=== PATIENT | female | born 1995 | race Caucasian/White ===

== ENCOUNTER 2017-02-28 23:11 | Emergency (ER) | payer SELFPAY ==
[2017-03-01] MEDS ORDERED: Ketorolac INJ* 60 MG/2 ML VIAL IM ONE (00:53)
[2017-03-01] MEDS ORDERED: HYDROcodone/ACETAMIN 5-325 MG* 1 TAB PO ONE (00:53)
--- NOTE | 2017-03-01 01:31 | ED ---
Lower Extremity - HPI Summary HPI Summary: Patient presents to ED s/p fall and twisted ankle. Now complains of right ankle pain and swelling with no ecchymosis. She denies pain up the leg or behind the knee. Denies blood thinners. Denies hitting head or LOC. - History of Current Complaint Chief Complaint: EDExtremityLower Stated Complaint: FALL/RT ANKLE INJURY Time Seen by Provider: 02/28/17 23:21 Hx Obtained From: Patient Hx Last Menstrual Period: Apr 2016 Mechanism Of Injury: Twisted Onset of Pain: Immediate Onset/Duration: Hours Severity Initially: Moderate Severity Currently: Moderate Pain Intensity: 8 Pain Scale Used: 0-10 Numeric Timing: Constant Location: Is Discrete @ - right lateral ankle Associated Signs And Symptoms: Positive: Swelling Aggravating Factor(s): Standing, Ambulation, Weight Bearing Alleviating Factor(s): Rest, Elevation Able to Bear Weight: No - Risk Factors Gout Risk Factors: Negative DVT Risk Factors: Negative Septic Arthritis Risk Factor: Negative - Allergies/Home Medications Allergies/Adverse Reactions: Allergies Allergy/AdvReac Type Severity Reaction Status Date / Time No Known Allergies Allergy Verified 06/14/16 20:07 PMH/Surg Hx/FS Hx/Imm Hx Previously Healthy: Yes Endocrine/Hematology History: Denies: Hx Diabetes, Hx Thyroid Disease Cardiovascular History: Denies: Hx Congestive Heart Failure, Hx Hypertension Respiratory History: Denies: Hx Asthma, Hx Chronic Obstructive Pulmonary Disease (COPD) GI History: Denies: Hx Ulcer History: Denies: Hx Renal Disease - Surgical History Surgery Procedure, Year, and Place: T & A, 2007 - Immunization History Hx Pertussis Vaccination: No Immunizations Up to Date: Unable to Obtain/Confirm Infectious Disease History: Denies: Hx Hepatitis, Hx Human Immunodeficiency Virus (HIV), Traveled Outside the [place] in Last 30 Days - Family History Known Family History: Positive: Hypertension - Social History Occupation: Employed Full-time Lives: With Family Alcohol Use: None Hx Substance Use: No Substance Use Type: Reports: None Hx Tobacco Use: No Smoking Status (MU): Never Smoked Tobacco Have You Smoked in the Last Year: No Review of Systems Constitutional: Negative Positive: Photophobia Cardiovascular: Negative Respiratory: Negative Positive: no symptoms reported, see HPI Positive: Arthralgia, Myalgia Skin: Negative Psychological: Normal All Other Systems Reviewed And Are Negative: Yes Physical Exam - Summary Physical Exam Summary: Thorough physical exam was performed, focusing on ankle special tests. Pain on palpation over lateral aspect and superior aspect of ankle over ATFL and deltoid ligaments. No pain on palpation over medial side. Due to patient pain around injury, physical exam was limited. Unable to perform anterior drawer test or talar tilt test d/t pain. Resendez test negative. Limited ROM. Dorsiflexion, great toe extension and plantar flexion intact however limited. No pain on palpation over medial or lateral lower extremity. No pain with knee flexion. Pulses intact bilaterally. No temperature change or pallor noted bilaterally. Ecchymosis and swelling noted on lateral aspect. No lesion or disruption of skin is seen. Unable to bear weight. Triage Information Reviewed: Yes Vital Signs Reviewed: Yes Appearance: Positive: Well-Appearing, Well-Nourished Skin: Positive: Warm, Skin Color Reflects Adequate Perfusion Eyes: Positive: EOMI, EMILIANO, Conjunctiva Clear Neck: Positive: Supple, No Lymphadenopathy Respiratory/Lung Sounds: Positive: Clear to Auscultation, Breath Sounds Present Cardiovascular: Positive: Normal, RRR, Pulses are Symmetrical in both Upper and Lower Extremities Neurological: Positive: Sensory/Motor Intact, Alert, Oriented to Person Place, Time, Speech Normal Psychiatric: Positive: Normal Lower Extremity Course/Dx - Course Course Of Treatment: Based on [facility] Rules, patient sent to imaging. Xray negative for fracture or other acute findings. Soft tissue swelling noted over the lateral aspect of the ankle. Medial and lateral distal lower extremity without pain and x-rays show no widening of the ankle joint regarding low suspicion for Maisonneuve fx. Ankle was natividad wrapped to patient comfort to allow for immobilization for this period of time. Crutches given. Patient given orthopedic follow up in 5-7 days. Encouraged Ibuprofen 600mg three times daily with meals for pain. Return precautions given. Educated patient regarding ankle injuries and healing time and the possibility of further evaluation and imaging as orthopedist sees fit. - Diagnoses Differential Diagnosis/HQI/PQRI: Positive: Contusion, Fracture (Closed), Sprain , Strain Provider Diagnoses: Grade 2 ankle sprain Discharge - Discharge Plan Condition: Stable Disposition: HOME Patient Education Materials: Ankle Sprain (ED) Forms: *Work Release Referrals: Connie Beaver DO [Primary Care Provider] - Additional Instructions: Crutches for ambulation given. Ibuprofen 600mg three times daily with meals for pain. Follow up with orthopedic physician in 5-7 days. If numbness, tingling, decreased sensation, increased pain, temperature changes or pallor noted in toes, come back to ER immediately. Protect the area. For your comfort level, do not bear weight, pull or push until you can injury is somewhat healed. This may involve the need for immobilization or crutches for a period of time. Rest the involved area, but not too long. You may need to be off your injury for some time to allow for healing, however excessive immobilization of joints can lead to stiffness and delay healing time. Early mobilization is encouraged if it is pain-free. Ice. Not directly on the skin. Cover with a towel. Apply ice no more than 30 minutes at a time Compression: You may use and keep an natividad wrap bandage over the injury to decrease swelling. Again, this should be limited and be taken off periodically to encourage early range of motion and mobilization. Elevate: Try to elevate the injured area above the heart whenever possible.
[2017-03-01 05:45] VITALS: BP 141/86
--- NOTE | 2017-03-01 07:23 | RAD ---
INDICATION: Right ankle injury COMPARISON: None TECHNIQUE: AP, lateral, and oblique views were obtained. FINDINGS: There is no acute fracture or dislocation. There is minor lateral soft tissue swelling. IMPRESSION: NO ACUTE FRACTURE.
== END 2017-03-01 01:25 | disposition home or self-care (01) ==
LOC: ED 23:11
DX: S93.401A Sprain of unspecified ligament of right ankle, initial encounter (principal); W19.XXXA Unspecified fall, initial encounter; Y93.9 Activity, unspecified; Y92.9 Unspecified place or not applicable
CPT/HCPCS: 99281

== ENCOUNTER 2017-07-15 09:35 | Emergency (ER) | payer OTHER ==
[2017-07-15 10:08] VITALS: BP 136/66
--- NOTE | 2017-07-15 10:53 | RAD ---
HISTORY: Headache, dizziness COMPARISONS: None TECHNIQUE: Multiple contiguous axial CT scans were obtained of the head without intravenous contrast. FINDINGS: HEMORRHAGE/INFARCT: There is no hemorrhage or acute infarct. MASSES/SHIFT: There is no mass or shift. EXTRA-AXIAL SPACES: There are no extra-axial fluid collections. SULCI AND VENTRICLES: The sulci and ventricles are normal in size and position for the patient's stated age. CEREBRUM: There are no focal parenchymal abnormalities. BRAINSTEM: There are no focal parenchymal abnormalities. CEREBELLUM: There are no focal parenchymal abnormalities. VESSELS: The vessels are grossly normal. PARANASAL SINUSES: The paranasal sinuses are clear. ORBITS: The orbits are unremarkable. BONES AND SOFT TISSUE: No bone or soft tissue abnormalities are noted. OTHER: None IMPRESSION: NO ACUTE INTRACRANIAL PATHOLOGY.
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
== END 2017-07-15 11:16 | disposition short-term general hospital (02) ==
LOC: UCEAST 09:35
DX: R50.9 Fever, unspecified (principal); R51 Headache; R00.0 Tachycardia, unspecified; R11.2 Nausea with vomiting, unspecified; M54.2 Cervicalgia
CPT/HCPCS: 70450; 81003; 87086; 99212; G0463

== ENCOUNTER 2017-07-15 11:35 | Observation (INO) | payer OTHER ==
[2017-07-15] MEDS ORDERED: NS 0.9% 1000 ML* 1,000 ML IV ONE (11:59)
[2017-07-15 13:07] LABS: Hematocrit 41 % (35-47); Hemoglobin 13.8 g/dl (12.0-16.0); Mean Corpuscular HGB Conc 34 g/dl (31-36); Mean Corpuscular Hemoglobin 30 pg (27-31); Mean Corpuscular Volume 88 fL (80-97); Mean Platelet Volume 8 um3 (7.4-10.4); Red Blood Count 4.63 10^6/ul (4.0-5.4); Red Cell Distribution Width 12 % (10.5-15)
[2017-07-15] MEDS ORDERED: fentaNYL* 50 MCG/ML 2 ML VIAL (100 MCG VIAL) ONE (13:08)
[2017-07-15] MEDS: fentaNYL* 50 MCG/ML 2 ML VIAL (100 MCG VIAL) IV PRN ×2 (13:17→14:30)
[2017-07-15] MEDS ORDERED: Lidocaine 2% PF * 5 ML VIAL ONE (13:18)
[2017-07-15 13:22] LABS: ALT 33 U/L (7-52); AST 21 U/L (13-39); Albumin 4.1 g/dL (3.2-5.2); Alkaline Phosphatase 129 U/L (34-104); Anion Gap 7 mmol/L (2-11); BUN/Creatinine Ratio 8.6 (8-20); Blood Urea Nitrogen 8 mg/dL (6-24); C Reactive Protein 27.75 mg/L (< 5.00); CO2 Carbon Dioxide 24 mmol/L (22-32); Calcium 9.6 mg/dL (8.6-10.3); Chloride 103 mmol/L (101-111); EGFR African American 98.8 (>60); EGFR Non-African American 76.9 (>60); Globulin 3.1 g/dL (2-4); Glucose 83 mg/dL (70-100); Potassium 3.9 mmol/L (3.5-5.0); Sodium 134 mmol/L (133-145); Total Protein 7.2 g/dL (6.4-8.9)
[2017-07-15 13:47] LABS: Erythrocyte Sed Rate 17 mm/Hr (0-14)
[2017-07-15] MEDS ORDERED: Lidocaine 2% PF * 5 ML VIAL INJ ONE (14:07)
[2017-07-15 14:09] LABS: Body Fluid Appearance Clear
[2017-07-15 14:18] LABS: CSF Glucose 56 mg/dL (40-70)
[2017-07-15 14:21] LABS: BF WBC Count #1 2; BF WBC Count #2 3; Body Fluid WBC 3 /mcL; WBC counts within 15%? Yes
[2017-07-15 14:23] LABS: BF RBC Count #1 5; BF RBC Count #2 7; RBC counts within 6%? Yes
[2017-07-15 15:00] LABS: Body Fluid Total Cells Counted 24
--- NOTE | 2017-07-15 15:18 | RAD ---
Indication: Headache and fever. 2 views of the chest including dual energy PA views and a straight no mediastinal shift. Heart is of normal size and configuration. Lung smith demonstrate no pleural fluid, pneumonia. IMPRESSION: No active cardiopulmonary disease is noted.
[2017-07-15] MEDS ORDERED: Ketorolac INJ* 30 MG/ML 1 ML VIAL IV PUSH ONE (15:32)
[2017-07-15 16:56] LABS: Urine Bacteria 2+ (Absent); Urine Bilirubin Negative (Negative); Urine Glucose Negative (Negative); Urine Nitrite Negative (Negative)
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
[2017-07-15] MEDS ORDERED: Acetaminophen TAB* 325 MG PO ONE (21:25)
[2017-07-15] MEDS ORDERED: Morphine INJ* 4 MG/ML 1 ML CARPUJECT IV ONE (21:25)
[2017-07-15] MEDS: NS 0.9% 1000 ML*IV.FLUID IV ONE ×2 (21:41→22:58)
[2017-07-15 22:13] LABS: Hematocrit 39 % (35-47); Hemoglobin 13.1 g/dl (12.0-16.0); Mean Corpuscular HGB Conc 33 g/dl (31-36); Mean Corpuscular Hemoglobin 30 pg (27-31); Mean Corpuscular Volume 89 fL (80-97); Mean Platelet Volume 9 um3 (7.4-10.4); Red Blood Count 4.43 10^6/ul (4.0-5.4); Red Cell Distribution Width 12 % (10.5-15); White Blood Count 9.7 10^3/ul (3.5-10.8)
[2017-07-15] MEDS ORDERED: Melatonin (NF) 3 MG TAB PO PRN (22:22)
[2017-07-15] MEDS ORDERED: fentaNYL* 50 MCG/ML 2 ML VIAL (100 MCG VIAL) IV SLOW PU PRN (22:22)
[2017-07-15] MEDS ORDERED: Ondansetron INJ* 2 MG/ML VIAL IV PRN (22:22)
[2017-07-15] MEDS ORDERED: NS 0.9% 1000 ML* 1,000 ML IV SCH (22:30)
[2017-07-15 22:32] LABS: Albumin 3.8 g/dL (3.2-5.2); BUN/Creatinine Ratio 10.7 (8-20); C Reactive Protein 41.69 mg/L (< 5.00); Calcium 9.2 mg/dL (8.6-10.3); EGFR African American 87.9 (>60); EGFR Non-African American 68.3 (>60); Globulin 2.9 g/dL (2-4); Potassium 3.5 mmol/L (3.5-5.0); Total Bilirubin 0.8 mg/dL (0.2-1.0); Total Protein 6.7 g/dL (6.4-8.9)
[2017-07-15] MEDS: Acetaminophen TAB* 325 MG PO PRN (23:51)
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
[2017-07-16] MEDS: traMADol TAB* 50 MG PO PRN ×3 (02:57→17:28)
[2017-07-16] MEDS: Omeprazole CAP* 20 MG PO SCH (05:44)
[2017-07-16 06:50] LABS: Hematocrit 37 % (35-47); Hemoglobin 12.3 g/dl (12.0-16.0); Mean Corpuscular HGB Conc 34 g/dl (31-36); Mean Corpuscular Hemoglobin 30 pg (27-31); Mean Corpuscular Volume 90 fL (80-97); Mean Platelet Volume 8 um3 (7.4-10.4); Red Blood Count 4.09 10^6/ul (4.0-5.4); Red Cell Distribution Width 13 % (10.5-15); White Blood Count 8.2 10^3/ul (3.5-10.8)
[2017-07-16 07:12] LABS: BUN/Creatinine Ratio 8.3 (8-20); Calcium 8.3 mg/dL (8.6-10.3); EGFR African American 111.2 (>60); EGFR Non-African American 86.4 (>60)
[2017-07-16] MEDS: Docusate CAP* 100 MG PO SCH ×2 (08:53→19:29)
[2017-07-16] MEDS ORDERED: Ketorolac INJ* 30 MG/ML 1 ML VIAL IV PUSH ONE (09:00)
[2017-07-16] MEDS: DOXYcycline CAP(*) 100 MG PO SCH ×2 (10:40→19:28)
--- NOTE | 2017-07-16 15:17 | PN ---
Subjective Date of Service: 07/16/17 Interval History: This is a 22 yo female who has a h/o chronic HAs and prior TBI who was admitted overnight for symptom management due to c/o severe VELASQUEZ and fever. There was initial concern for meningitis, but CSF analysis was WNL. Today, patient continues to have a VELASQUEZ with c/o nausea and has had an intermittent fever. Appetite is poor. No other arthralgias, cough, abd pain. Objective Active Medications: Acetaminophen (Tylenol Tab*) 650 mg PO Q6H PRN PRN Reason: FEVER/PAIN Last Admin: 07/15/17 23:51 Dose: 650 mg Docusate Sodium (Colace Cap*) 200 mg PO BID [facility] Last Admin: 07/16/17 08:53 Dose: Not Given Doxycycline Hyclate (Vibramycin Cap(*)) 100 mg PO BID [facility] Last Admin: 07/16/17 10:40 Dose: 100 mg Fentanyl Citrate (Fentanyl*) 25 mcg IV SLOW PU Q4H PRN PRN Reason: PAIN Melatonin (Melatonin (Nf)) 3 mg PO BEDTIME PRN; Protocol PRN Reason: Sleep Omeprazole (Prilosec Cap*) 20 mg PO DAILY@0600 [facility] Last Admin: 07/16/17 05:44 Dose: 20 mg Ondansetron HCl (Zofran Inj*) 4 mg IV Q6H PRN PRN Reason: NAUSEA Last Admin: 07/16/17 11:55 Dose: 4 mg Tramadol HCl (Ultram*) 50 mg PO Q6H PRN PRN Reason: PAIN Last Admin: 07/16/17 08:59 Dose: 50 mg Vital Signs: Temp Pulse Resp BP Pulse Ox 100.1 F 106 18 135/67 97 07/16/17 11:21 07/16/17 11:21 07/16/17 11:21 07/16/17 11:21 07/16/17 11:21 Oxygen Devices in Use Now: None Appearance: Mildly ill appearing young female in NAD Respiratory: Symmetrical Chest Expansion and Respiratory Effort, Clear to Auscultation Cardiovascular: NL Sounds; No Murmurs; No JVD, RRR Abdominal: NL Sounds; No Tenderness; No Distention Extremities: No Edema Skin: No Rash or Ulcers Neurological: Alert and Oriented x 3, - - 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 Assess/Plan/Problems-Billing Assessment: This is a 22 yo female with remote h/o TBI and chronic HAs who presented to the ER with fever and severe VELASQUEZ. Initial concern for meningitis, but CSF WNL. Admitted for symptom management. - Patient Problems (1) Febrile illness Comment: Viral syndrome v Lyme disease CSF unremarkable Empirically treat for Lyme with doxycycline, serology pending Cont supportive care measures. (2) Full code status (3) DVT prophylaxis Comment: Low risk Status and Disposition: Observation. Cont supportive care measures. Likely dc tomorrow if she is able to tolerate oral foods and additional symptoms are controlled with oral medications
[2017-07-16 15:43] LABS: HSV 1 PCR, CSF Negative (Negative); HSV 2 PCR, CSF Negative (Negative)
[2017-07-16 17:37] LABS: CSF VDRL Negative (Negative)
[2017-07-16] MEDS: Acetaminophen TAB* 325 MG PO PRN (18:08)
[2017-07-17] MEDS: Omeprazole CAP* 20 MG PO SCH (05:17)
[2017-07-17] MEDS: traMADol TAB* 50 MG PO PRN (06:54)
[2017-07-17 09:08] VITALS: BP 122/65
[2017-07-17] MEDS: Acetaminophen TAB* 325 MG PO PRN (09:28)
[2017-07-17] MEDS: DOXYcycline CAP(*) 100 MG PO SCH (09:28)
[2017-07-17] MEDS: Docusate CAP* 100 MG PO SCH (09:28)
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
[2017-07-18 17:08] LABS: CSF West Nile Virus IgG Ab Negative (Negative); CSF West Nile Virus IgM Ab Negative (Negative)
== END 2017-07-17 10:45 | disposition home or self-care (01) ==
LOC: ED 11:35 → MED 22:20
PROVIDERS: ADMIT Hospitalist; ATTEND Hospitalist
DX: R50.9 Fever, unspecified (principal); R51 Headache; Z87.820 Personal history of traumatic brain injury; E28.2 Polycystic ovarian syndrome; Z32.02 Encounter for pregnancy test, result negative
CPT/HCPCS: 36415; 71020; 80048; 80053; 81003; 81015; 82945; 83605; 84157; 84702; 85025; 85652; 86140; 86592; 86618; 86788; 86789; 87040; 87070; 87077; 87086; 87186; 87205; 87502; 87529; 87651; 89051; 96361; 96374; 96375; 96376; 99283; A9270-GY; G0378; J1885; J2270; J2405; J3010

== ENCOUNTER 2018-03-12 18:59 | Emergency (ER) | payer OTHER ==
[2018-03-12 19:15] VITALS: BP 143/69
[2018-03-12] MEDS ORDERED: Tetan/Diph/Pertus SYR(Tdap)* 0.5 ML SYR(BOOSTRIX) use SYR IM ONE (19:20)
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
== END 2018-03-12 20:01 | disposition home or self-care (01) ==
LOC: UCCORT 18:59
DX: S60.811A Abrasion of right wrist, initial encounter (principal); W19.XXXA Unspecified fall, initial encounter; Y93.89 Activity, other specified; Y92.9 Unspecified place or not applicable; Y99.0 Civilian activity done for income or pay
CPT/HCPCS: 90471; 90715; 99211; G0463

== ENCOUNTER 2018-05-16 12:51 | Emergency (ER) | payer OTHER ==
[2018-05-16] MEDS ORDERED: NS 0.9% 1000 ML* 1,000 ML IV ONE (17:02)
[2018-05-16] MEDS ORDERED: Ondansetron INJ* 2 MG/ML VIAL IV ONE (17:08)
[2018-05-16] MEDS ORDERED: Morphine VIAL* 10 MG/ML 1 ML VIAL IV ONE (17:08)
[2018-05-16 17:13] LABS: ABS Basophils 0 10^3/ul (0-0.2); ABS Eosinophils 0 10^3/ul (0-0.6); ABS Lymphocytes 2.2 10^3/ul (1.0-4.8); ABS Monocytes 0.5 10^3/ul (0-0.8); ABS Nucleated RBC 0 10^3/ul; Eosinophil % 0.1 % (0-6); Hematocrit 41 % (35-47); Hemoglobin 13.7 g/dl (12.0-16.0); Lymphocyte % 20.9 % (25-47); Mean Corpuscular HGB Conc 34 g/dl (31-36); Mean Corpuscular Hemoglobin 30 pg (27-31); Mean Corpuscular Volume 88 fL (80-97); Mean Platelet Volume 7.9 um3 (7.4-10.4); Nucleated Red Blood Cells % 0; Platelet Count 258 10^3/ul (150-450); Red Cell Distribution Width 12 % (10.5-15); White Blood Count 10.8 10^3/ul (3.5-10.8)
[2018-05-16 17:35] LABS: EGFR Non-African American 97.5 (>60)
[2018-05-16] MEDS ORDERED: Iohexol 300* (CONTRAST) 10 ML SDV IV ONE (18:04)
[2018-05-16 18:07] LABS: Urine Appearance Clear; Urine Blood NEG (Negative); Urine Color Yellow; Urine Ketones NEG (Negative); Urine Urobilinogen NEG (Negative)
[2018-05-16 18:08] LABS: Urine Protein 1+(30 mg/dL) (Negative)
--- NOTE | 2018-05-16 19:28 | RAD ---
EXAM: CT Abdomen and Pelvis With Intravenous Contrast CLINICAL HISTORY: 23 years old, female; Pain; Abdominal pain; Additional info: Rlq pain, constant, + mcburneys TECHNIQUE: Axial computed tomography images of the abdomen and pelvis with intravenous contrast. All CT scans at this facility use at least one of these dose optimization techniques: automated exposure control; mA and/or kV adjustment per patient size (includes targeted exams where dose is matched to clinical indication); or iterative reconstruction. Coronal and sagittal reformatted images were created and reviewed. CONTRAST: 131 mL of OMNIPAQUE 300 administered intravenously. COMPARISON: A/P W CT ABD/PEL W 05/29/2014 3:59 AM FINDINGS: Lung bases: There is bibasilar atelectatic change or scarring. Mediastinum: Slight increase in size of small hiatal hernia. ABDOMEN: Liver: Stable mild hepatomegaly. Gallbladder and bile ducts: Unremarkable. No calcified stones. No ductal dilation. Pancreas: Unremarkable. No mass. No ductal dilation. Spleen: Unremarkable. No splenomegaly. Adrenals: Unremarkable. No mass. Kidneys and ureters: Unremarkable. No solid mass. No hydronephrosis. Stomach and bowel: Unremarkable. No obstruction. No mucosal thickening. PELVIS: Appendix: The appendix is unremarkable. The appendix is seen best on axial image 53 of series 2. Bladder: Unremarkable. No mass. Reproductive: Unremarkable as visualized. ABDOMEN and PELVIS: Intraperitoneal space: Unremarkable. No free air. No significant fluid collection. Bones/joints: No acute fracture. No dislocation. Soft tissues: Unremarkable. Vasculature: Unremarkable. No abdominal aortic aneurysm. Lymph nodes: Unremarkable. No enlarged lymph nodes. IMPRESSION: 1. Slight increase in size of small hiatal hernia. 2. The appendix is unremarkable. 3. No other acute CT pathology.
--- NOTE | 2018-05-16 19:59 | ED ---
Abdominal Pain/Female - HPI Summary HPI Summary: Patient complains of bilateral lower back pain radiating down left leg 3 weeks , also complains of mild intermittent VELASQUEZ, fever up to 101.3, right lower quadrant pain, burning with urination, chills. Patient was seen for back pain according on 2 weeks ago was given Flexeril and tramadol without relief. Patient is also seeing chiropractor without relief. Abdominal pain described as constant, sharp, history of same one year ago. Has appointment with PCP next week but could not wait due to pain. Denies urinary retention, incontinence, SOB, cough, sore throat, CP, N/V/D, vaginal symptoms. Medical history is anxiety, PCO S. Surgical history is none. LMP 2 days ago. - History of Current Complaint Chief Complaint: EDBackInjuryPain Stated Complaint: BACK PAIN/FEVER/HEADACHE Time Seen by Provider: 05/16/18 16:47 Hx Obtained From: Patient Hx Last Menstrual Period: 06/21/2017 ?: No Onset/Duration: Gradual Onset Timing: Constant Severity Initially: Severe Severity Currently: Severe Pain Intensity: 9 Pain Scale Used: 0-10 Numeric Location: Discrete At: RLQ Radiates: No Character: Sharp Aggravating Factor(s): Nothing Alleviating Factor(s): Nothing Associated Signs and Symptoms: Positive: Back Pain, Urinary Symptoms Allergies/Adverse Reactions: Allergies Allergy/AdvReac Type Severity Reaction Status Date / Time No Known Allergies Allergy Verified 05/16/18 17:07 PMH/Surg Hx/FS Hx/Imm Hx Endocrine/Hematology History: Denies: Hx Diabetes, Hx Thyroid Disease Cardiovascular History: Denies: Hx Congestive Heart Failure, Hx Hypertension Respiratory History: Denies: Hx Asthma, Hx Chronic Obstructive Pulmonary Disease (COPD) GI History: Denies: Hx Ulcer History: Reports: Other Problems/Disorders - PCOS Denies: Hx Renal Disease Sensory History: Reports: Hx Contacts or Glasses Denies: Hx Hearing Aid Opthamlomology History: Reports: Hx Contacts or Glasses - Surgical History Surgery Procedure, Year, and Place: T & A, 2007 - Immunization History Immunizations Up to Date: Yes Infectious Disease History: No Infectious Disease History: Denies: Hx Hepatitis, Hx Human Immunodeficiency Virus (HIV), Hx of Known/ Suspected MRSA, Traveled Outside the [place] in Last 30 Days - Family History Known Family History: Positive: Unknown - STATES SHE IS UNSURE OF ANY OF HER FAMILY'S PMHx, Other - No cancer, father and siblings are alive and well with no illness Negative: Cardiac Disease, Hypertension, Diabetes - Social History Alcohol Use: Occasionally Hx Substance Use: No Substance Use Type: Reports: None Hx Tobacco Use: No Smoking Status (MU): Never Smoked Tobacco Have You Smoked in the Last Year: No Review of Systems Positive: Fever Eyes: Negative ENT: Negative Cardiovascular: Negative Respiratory: Negative Positive: Abdominal Pain Positive: burning Musculoskeletal: Negative Skin: Negative Positive: Headache Psychological: Normal All Other Systems Reviewed And Are Negative: Yes Physical Exam Triage Information Reviewed: Yes Vital Signs On Initial Exam: Initial Vitals Temp Pulse Resp BP Pulse Ox 98.8 F 102 18 122/66 100 05/16/18 12:55 05/16/18 12:55 05/16/18 12:55 05/16/18 12:55 05/16/18 12:55 Vital Signs Reviewed: Yes Appearance: Positive: Well-Appearing Skin: Positive: Warm Head/Face: Positive: Normal Head/Face Inspection Eyes: Positive: Normal ENT: Positive: Normal ENT inspection Neck: Positive: Supple Respiratory/Lung Sounds: Positive: Clear to Auscultation Cardiovascular: Positive: Normal Abdomen Description: Positive: [place] Tenderness Musculoskeletal: Positive: Normal Neurological: Positive: Normal Psychiatric: Positive: Normal AVPU Assessment: Alert - [place] Coma Scale Best Eye Response: 4 - Spontaneous Best Motor Response: 6 - Obeys Commands Best Verbal Response: 5 - Oriented Coma Scale Total: 15 Diagnostics - Vital Signs Vital Signs Temp Pulse Resp BP Pulse Ox 05/16/18 17:34 16 05/16/18 17:01 97 20 138/72 97 05/16/18 12:55 98.8 F 102 18 122/66 100 - Laboratory Lab Results: Lab Results 05/16/18 05/16/18 05/16/18 Range/Units 16:59 16:59 16:59 WBC 10.8 (3.5-10.8) 10^3/ul RBC 4.60 (4.00-5.40) 10^6/ul Hgb 13.7 (12.0-16.0) g/dl Hct 41 (35-47) % MCV 88 (80-97) fL MCH 30 (27-31) pg MCHC 34 (31-36) g/dl RDW 12 (10.5-15) % Plt Count 258 (150-450) 10^3/ul MPV 7.9 (7.4-10.4) um3 Neut % (Auto) 74.1 (38-83) % Lymph % (Auto) 20.9 L (25-47) % [place] % (Auto) 4.7 (0-7) % Eos % (Auto) 0.1 (0-6) % Baso % (Auto) 0.2 (0-2) % Absolute Neuts (auto) 8.0 H (1.5-7.7) 10^3/ul Absolute Lymphs (auto) 2.2 (1.0-4.8) 10^3/ul Absolute Monos (auto) 0.5 (0-0.8) 10^3/ul Absolute Eos (auto) 0 (0-0.6) 10^3/ul Absolute Basos (auto) 0 (0-0.2) 10^3/ul Absolute Nucleated RBC 0 10^3/ul Nucleated RBC % 0 Sodium 137 (135-145) mmol/L Potassium 4.3 (3.5-5.0) mmol/L Chloride 105 (101-111) mmol/L Carbon Dioxide 23 (22-32) mmol/L Anion Gap 9 (2-11) mmol/L BUN 11 (6-24) mg/dL Creatinine 0.75 (0.51-0.95) mg/dL Est GFR ( Amer) 118.0 (>60) Est GFR (Non-Af Amer) 97.5 (>60) BUN/Creatinine Ratio 14.7 (8-20) Glucose 77 (70-100) mg/dL Lactic Acid 0.8 (0.5-2.0) mmol/L Calcium 9.6 (8.6-10.3) mg/dL Total Bilirubin 1.20 H (0.2-1.0) mg/dL AST 15 (13-39) U/L ALT 21 (7-52) U/L Alkaline Phosphatase 104 (34-104) U/L C-Reactive Protein 67.30 H (<8.01) mg/L Total Protein 7.5 (6.4-8.9) g/dL Albumin 4.3 (3.2-5.2) g/dL Globulin 3.2 (2-4) g/dL Albumin/Globulin Ratio 1.3 (1-3) Lipase 10 L (11.0-82.0) U/L Beta HCG, Quant < 0.60 mIU/mL Urine Color Urine Appearance Urine pH (5-9) Ur Specific [place] (1.010-1.030) Urine Protein (Negative) Urine Ketones (Negative) Urine Blood (Negative) Urine Nitrate (Negative) Urine Bilirubin (Negative) Urine Urobilinogen (Negative) Ur Leukocyte Esterase (Negative) Urine Glucose (Negative) 05/16/18 Range/Units 18:01 WBC (3.5-10.8) 10^3/ul RBC (4.00-5.40) 10^6/ul Hgb (12.0-16.0) g/dl Hct (35-47) % MCV (80-97) fL MCH (27-31) pg MCHC (31-36) g/dl RDW (10.5-15) % Plt Count (150-450) 10^3/ul MPV (7.4-10.4) um3 Neut % (Auto) (38-83) % Lymph % (Auto) (25-47) % [place] % (Auto) (0-7) % Eos % (Auto) (0-6) % Baso % (Auto) (0-2) % Absolute Neuts (auto) (1.5-7.7) 10^3/ul Absolute Lymphs (auto) (1.0-4.8) 10^3/ul Absolute Monos (auto) (0-0.8) 10^3/ul Absolute Eos (auto) (0-0.6) 10^3/ul Absolute Basos (auto) (0-0.2) 10^3/ul Absolute Nucleated RBC 10^3/ul Nucleated RBC % Sodium (135-145) mmol/L Potassium (3.5-5.0) mmol/L Chloride (101-111) mmol/L Carbon Dioxide (22-32) mmol/L Anion Gap (2-11) mmol/L BUN (6-24) mg/dL Creatinine (0.51-0.95) mg/dL Est GFR ( Amer) (>60) Est GFR (Non-Af Amer) (>60) BUN/Creatinine Ratio (8-20) Glucose (70-100) mg/dL Lactic Acid (0.5-2.0) mmol/L Calcium (8.6-10.3) mg/dL Total Bilirubin (0.2-1.0) mg/dL AST (13-39) U/L ALT (7-52) U/L Alkaline Phosphatase (34-104) U/L C-Reactive Protein (<8.01) mg/L Total Protein (6.4-8.9) g/dL Albumin (3.2-5.2) g/dL Globulin (2-4) g/dL Albumin/Globulin Ratio (1-3) Lipase (11.0-82.0) U/L Beta HCG, Quant mIU/mL Urine Color Yellow Urine Appearance Clear Urine pH 7 (5-9) Ur Specific [place] 1.010 (1.010-1.030) Urine Protein 1+(30 mg/dl) A (Negative) Urine Ketones Neg (Negative) Urine Blood Neg (Negative) Urine Nitrate Neg (Negative) Urine Bilirubin Neg (Negative) Urine Urobilinogen Neg (Negative) Ur Leukocyte Esterase 3+ A (Negative) Urine Glucose Neg (Negative) Result Diagrams: 05/16/18 16:59 05/16/18 16:59 Lab Statement: Any lab studies that have been ordered have been reviewed, and results considered in the medical decision making process. - CT ab/pel w CT Interpretation: No Acute Changes CT Interpretation Completed By: Radiologist Abdominal Pain Fem Course/Dx - Course Course Of Treatment: Patient complains of bilateral lower back pain radiating down left leg 3 weeks, also complains of mild intermittent VELASQUEZ, fever up to 101.3, right lower quadrant pain, burning with urination, chills. Patient was seen for back pain according on 2 weeks ago was given Flexeril and tramadol without relief. Patient is also seeing chiropractor without relief. Abdominal pain described as constant, sharp, history of same one year ago. Has appointment with PCP next week but could not wait due to pain. Denies urinary retention, incontinence, SOB, cough, sore throat, CP, N/V/D, vaginal symptoms. Medical history is anxiety, PCO S. Surgical history is none. LMP [address] abdomen and pelvis negative. Transvaginal ultrasound positive for bilateral ovarian cysts. Patient back pain likely sciatica. Rx for Valium and prednisone for sciatica. Ibuprofen for ovarian cysts. - Diagnoses Provider Diagnoses: Sciatica, Ovarian cyst Discharge - Sign-Out/Discharge Documenting (check all that apply): Patient Departure - Discharge Plan Condition: Stable Disposition: HOME Prescriptions: Diazepam TAB(*) [Valium TAB(*)] 5 mg PO TID PRN 2 Days #5 tab MDD 4 tabs PRN Reason: Spasms predniSONE TAB* [Deltasone 20 MG TAB*] 40 mg PO DAILY 5 Days #5 tab Patient Education Materials: Ovarian Cyst (ED), Sciatica (ED) Forms: *Work Release Referrals: Connie Beaver DO [Primary Care Provider] - Keri Wagner MD [Medical Doctor] - Additional Instructions: Ibuprofen for ovarian cysts. Take prednisone and Valium for sciatica. If back pain does not improve follow-up with orthopedics Dr. Wagner. Return to the ED for any new or worsening symptoms - Billing Disposition and Condition Condition: STABLE Disposition: Home
--- NOTE | 2018-05-16 20:10 | RAD ---
EXAM: US Pelvis, Transvaginal CLINICAL HISTORY: 23 years old, female; Pain; Pelvic pain; Additional info: R/O torsion TECHNIQUE: Real-time transvaginal pelvic ultrasound (complete) with image documentation. Transvaginal imaging was used for better evaluation of the endometrium and adnexa. COMPARISON: PELVIC US PELVIC 11/30/2013 3:29 PM, CT abdomen and pelvis May 16, 2018 FINDINGS: Uterus/cervix: There is a nabothian cyst in the cervix. The uterus measures 6.7 x 3.1 x 3.8 cm. The endometrial stripe thickness is 4 mm. No myometrial mass. Right ovary: There is a simple cyst of the right ovary measuring a maximum of 1.7 cm. The right ovary measures 3.7 x 1.8 x 2.5 cm with normal Doppler flow. Normal follicles. Normal blood flow. Left ovary: There is a left paraovarian cyst which appears simple and measures a maximum of 2.0 cm. The left ovary measures 2.8 x 1.4 x 2.6 cm with normal Doppler flow. Normal follicles. Normal blood flow. Free fluid: No free fluid. Bladder: Empty bladder which cannot be evaluated with this probe. IMPRESSION: 1. There is a left paraovarian cyst which appears simple and measures a maximum of 2.0 cm. 2. There is a simple cyst of the right ovary measuring a maximum of 1.7 cm. 3. No evidence for ovarian torsion.
[2018-05-16] MEDS ORDERED: predniSONE TAB* 20 MG PO ONE (20:29)
[2018-05-16 21:02] VITALS: BP 125/72
[2018-05-16 22:44] LABS: Urine Red Blood Cell 2+(6-10/hpf) (Absent); Urine White Blood Cell 3+(>20/hpf) (Absent)
--- NOTE | 2018-05-19 07:07 | ED ---
Progress - Progress Note Progress Note: Patient's final urine culture results reveal greater than 100,000 Staphylococcus saprophyticus. Patient was diagnosed with back pain and started on prednisone and diazepam. Her urine reveals possible findings of UTI on U/A and yeast however antibiotics and antifungals were not initiated. Attempted to contact patient to discuss symptoms and treatment plan however left message to call on voice mail. Will also mail letter. price clerk aware. Course/Dx - Course Course Of Treatment: Patient complains of bilateral lower back pain radiating down left leg 3 weeks, also complains of mild intermittent VELASQUEZ, fever up to 101.3, right lower quadrant pain, burning with urination, chills. Patient was seen for back pain according on 2 weeks ago was given Flexeril and tramadol without relief. Patient is also seeing chiropractor without relief. Abdominal pain described as constant, sharp, history of same one year ago. Has appointment with PCP next week but could not wait due to pain. Denies urinary retention, incontinence, SOB, cough, sore throat, CP, N/V/D, vaginal symptoms. Medical history is anxiety, PCO S. Surgical history is none. LMP [address] abdomen and pelvis negative. Transvaginal ultrasound positive for bilateral ovarian cysts. Patient back pain likely sciatica. Rx for Valium and prednisone for sciatica. Ibuprofen for ovarian cysts. - Diagnoses Provider Diagnoses: Sciatica, Ovarian cyst Discharge - Sign-Out/Discharge Documenting (check all that apply): Post-Discharge Follow Up - Discharge Plan Condition: Stable Disposition: HOME Prescriptions: Diazepam TAB(*) [Valium TAB(*)] 5 mg PO TID PRN 2 Days #5 tab MDD 4 tabs PRN Reason: Spasms predniSONE TAB* [Deltasone 20 MG TAB*] 40 mg PO DAILY 5 Days #5 tab Patient Education Materials: Ovarian Cyst (ED), Sciatica (ED) Forms: *Work Release Referrals: Connie Beaver DO [Primary Care Provider] - Keri Wagner MD [Medical Doctor] - Additional Instructions: Ibuprofen for ovarian cysts. Take prednisone and Valium for sciatica. If back pain does not improve follow-up with orthopedics Dr. Wagner. Return to the ED for any new or worsening symptoms - Billing Disposition and Condition Condition: STABLE Disposition: Home
== END 2018-05-16 21:00 | disposition home or self-care (01) ==
LOC: ED 12:51
DX: M54.30 Sciatica, unspecified side (principal); E28.2 Polycystic ovarian syndrome; N88.8 Other specified noninflammatory disorders of cervix uteri; K44.9 Diaphragmatic hernia without obstruction or gangrene; R51 Headache; R50.9 Fever, unspecified
CPT/HCPCS: 36415; 74177; 76830; 80053; 81003; 81015; 83605; 83690; 84702; 85025; 86140; 87077; 87086; 96361; 96374; 96375; 99282; J2270; J2405; J7512; Q9967

== ENCOUNTER 2018-11-21 10:02 | Emergency (ER) | payer OTHER ==
--- NOTE | 2018-11-21 10:13 | UC ---
Lower Extremity/Ankle HPI - HPI Summary HPI Summary: 23 y/o female presents to the urgent care c/o left ankle pain while walking down the steps to her car around 0900AM today. Pt reports she missed a step going down the stairs and fell twisting her Rt ankle. Pt is unable to bear weight. Lateral side of her Rt ankle is swelling and painful. Pain is 7/10 radiating to her heel w/ mild tingling sensation. LMP:10/18/2018 w/ irregular menstrual cycles. Pt denies calf pain, SOB, chest pain, abdominal pain, N/V/d. She has not taking anything to alleviate symptoms. - History of Current Complaint Stated Complaint: ANKLE INJURY Time Seen by Provider: 11/21/18 10:10 Hx Obtained From: Patient Hx Last Menstrual Period: 06/21/2017 Onset/Duration: Sudden Onset, Lasting Hours - 1hr, Still Present Severity Initially: Moderate Severity Currently: Moderate Pain Intensity: 7 Pain Scale Used: 0-10 Numeric Aggravating Factor(s): Standing, Ambulation Alleviating Factor(s): Rest, Elevation Able to Bear Weight: No - Risk Factors Gout Risk Factors: Negative DVT Risk Factors: Negative Septic Arthritis Risk Factor: Negative - Allergies/Home Medications Allergies/Adverse Reactions: Allergies Allergy/AdvReac Type Severity Reaction Status Date / Time No Known Allergies Allergy Verified 11/21/18 10:10 Home Medications: Home Medications traZODone TAB* [Desyrel TAB*] 50 mg PO BEDTIME 11/21/18 [History Confirmed 11/21] PMH/Surg Hx/FS Hx/Imm Hx Previously Healthy: Yes Psychological History: Anxiety - Surgical History Surgical History: Yes Surgery Procedure, Year, and Place: T & A, 2007 - Family History Known Family History: Positive: Hypertension, Other - No cancer, father and siblings are alive and well with no illness Negative: Cardiac Disease, Diabetes - Social History Occupation: Student Lives: With Family Alcohol Use: Occasionally Substance Use Type: None Smoking Status (MU): Never Smoked Tobacco Have You Smoked in the Last Year: No - Immunization History Most Recent Influenza Vaccination: unsure Most Recent Pneumonia Vaccination: never Vaccination Up to Date: Yes Review of Systems All Other Systems Reviewed And Are Negative: Yes Constitutional: Positive: Negative Skin: Positive: Other - RT ankle swelling Eyes: Positive: Negative ENT: Positive: Negative Respiratory: Positive: Negative Cardiovascular: Positive: Negative Gastrointestinal: Positive: Negative Genitourinary: Positive: Negative Motor: Positive: Negative Neurovascular: Positive: Negative Musculoskeletal: Positive: Decreased ROM - RT ankle, Other: - Rt ankle pain s/p fall about 1 hr ago Neurological: Positive: Negative Psychological: Positive: Negative Is Patient Immunocompromised?: No Physical Exam - Summary Physical Exam Summary: Vital Signs Reviewed: Yes General: well developed, well nourished female, sitting in the examining table w /o any apparent distress Eyes: Positive: Conjunctiva Clear - PERRLA, EOMI, ENT: Positive: Normal ENT inspection, Hearing grossly normal, Pharynx normal, TMs normal Neck: Positive: Supple, Nontender, No Lymphadenopathy Respiratory: Positive: Chest non-tender, Lungs clear, Normal breath sounds, No respiratory distress Cardiovascular: Positive: RRR, No Murmur, Pulses Normal, Brisk Capillary Refill Abdomen Description: Positive: Nontender, No Organomegaly, Soft. Negative: CVA Tenderness (R), CVA Tenderness (L) Bowel Sounds: Positive: Present Musculoskeletal: -RT Ankle: Pt is able to bear weight and ambulate w/ limping. The R ankle is without obvious asymmetry or deformity when compared to the L ankle. Decreased ROM due to pain. Moderate swelling at the lateral malleolus, with tenderness to palpation. No ecchymosis or bruising observed. No tenderness to palpation over the medial malleolus , no swelling observed. Talar tilt test is negative for ligament laxity to valgus or varus stress. Unable to perform anterior drawer test due to pain. Peroneal nerve is intact with strong eversion and plantar flexion. Positive sensation over the Rt foot and Rt ankle, positive pulses, capillary refill intact Neurological Exam: Normal Psychological Exam: Normal Skin: warm and dry Triage Information Reviewed: Yes Lower Extremity Course/Dx - Course Course Of Treatment: 23 y/o female presents to the urgent care c/o left ankle pain while walking down the steps to her car around 0900AM today. Pt reports she missed a step going down the stairs and fell twisting her Rt ankle. Pt is unable to bear weight. Lateral side of her Rt ankle is swelling and painful. Pain is 7/10 radiating to her heel w/ mild tingling sensation. LMP:10/18/2018 w/ irregular menstrual cycles. Pt denies calf pain, SOB, chest pain, abdominal pain, N/V/d. She has not taking anything to alleviate symptoms. Hx obtained. Rt ankle X-ray ordered, Impression: AVULSION FRACTURES OF THE CUBOID AND CALCANEAL BONES . and Soft tissue swelling as per radiologist. Pt immobilized with WILMER bandage and CAM boot, given crutches to avoid weight bearing, Rx Ibuprofen PO to decrease swelling and pain. Pt advised RICE, take Ibuprofen PO for pain and to f /u with Orthopedic DR Santiago in 1-2 days for further management on her RT ankle Avulsion racture. D/C instructions explained. Pt understood and agreed and left the clinic ambulating w/ the help of crutches. - Differential Dx/Diagnosis Differential Diagnosis/HQI/PQRI: Contusion, Dislocation, Fracture (Closed), Sprain, Strain, Tendonitis Provider Diagnosis: Right ankle injury, Closed avulsion fracture of right ankle Discharge - Sign-Out/Discharge Documenting (check all that apply): Patient Departure - D/C home All imaging exams completed and their final reports reviewed: Yes - Discharge Plan Condition: Stable Disposition: HOME Prescriptions: Ibuprofen TAB* [Motrin TAB* 800 MG] 800 mg PO Q6H PRN #30 tab PRN Reason: Pain Patient Education Materials: Ankle Fracture (ED) Forms: *School Release, *Work Release Referrals: Emeka Conti NP [Primary Care Provider] - 3 Days Fabrice Santiago MD [Medical Doctor] - 1 Day Additional Instructions: 1-Please take Ibuprofen PO q6-8hrs prn after meals as directed to alleviate pain and swelling. 2-Please apply ice, keep your ankle immobilized with the CAM boot. Avoid weight bearing using the crutches. Elevate your ankle and apply ice 3- Please f/u with Orthopedic DR Santiago in 1-2 days for further evaluation and treatment on your avulsion fracture - Billing Disposition and Condition Condition: STABLE Disposition: Home - Attestation Statements Provider Attestation: Per institutional requirements, I have reviewed the chart, however, I was not consulted specifically or made aware of this patient by the midlevel provider. I did not personally evaluate, interact with , or disposition this patient.
[2018-11-21 10:20] VITALS: BP 130/82
[2018-11-21] MEDS ORDERED: Ibuprofen TAB* 400 MG PO ONE (10:26)
== END 2018-11-21 12:07 | disposition home or self-care (01) ==
LOC: UCEAST 10:02
DX: S99.911A Unspecified injury of right ankle, initial encounter (principal); S92.211A Displaced fracture of cuboid bone of right foot, initial encounter for closed fracture; S92.001A Unspecified fracture of right calcaneus, initial encounter for closed fracture; W10.9XXA Fall (on) (from) unspecified stairs and steps, initial encounter; Y93.01 Activity, walking, marching and hiking; Y92.9 Unspecified place or not applicable; F41.9 Anxiety disorder, unspecified
CPT/HCPCS: 84702; 99213; A9270-GY; G0463

== ENCOUNTER 2019-01-17 18:16 | Emergency (ER) | payer OTHER ==
[2019-01-17 18:43] VITALS: BP 132/69
--- NOTE | 2019-01-17 19:13 | ED ---
Lower Extremity - HPI Summary HPI Summary: 23 yr old female with the complaint of left ankle pain. Onset of pain was earlier today when jumping over hay bale and twisted the left ankle. Pain mainly over medial and lat malleolus. No proximal leg pain, no foot pain. She heard a crack. Pain is worse with weight bearing. She has associated soft tissue swelling. She has pain that is 8/10 - History of Current Complaint Chief Complaint: UCLowerExtremity Stated Complaint: W/C LEFT ANKLE INJURY Time Seen by Provider: 01/17/19 18:35 Hx Last Menstrual Period: December 15 Pain Intensity: 7 - Allergies/Home Medications Allergies/Adverse Reactions: Allergies Allergy/AdvReac Type Severity Reaction Status Date / Time No Known Allergies Allergy Verified 01/17/19 18:43 PMH/Surg Hx/FS Hx/Imm Hx Endocrine/Hematology History: Denies: Hx Diabetes, Hx Thyroid Disease Cardiovascular History: Denies: Hx Congestive Heart Failure, Hx Hypertension Respiratory History: Denies: Hx Asthma, Hx Chronic Obstructive Pulmonary Disease (COPD) GI History: Denies: Hx Ulcer History: Reports: Other Problems/Disorders - PCOS Denies: Hx Renal Disease Sensory History: Reports: Hx Contacts or Glasses Denies: Hx Hearing Aid Opthamlomology History: Reports: Hx Contacts or Glasses - Surgical History Surgery Procedure, Year, and Place: T & A2007 Infectious Disease History: No Infectious Disease History: Denies: Hx Hepatitis, Hx Human Immunodeficiency Virus (HIV), Hx of Known/ Suspected MRSA, Traveled Outside the [place] in Last 30 Days - Family History Known Family History: Positive: Unknown - STATES SHE IS UNSURE OF ANY OF HER FAMILY'S PMHx, Hypertension, Other - No cancer, father and siblings are alive and well with no illness Negative: Cardiac Disease, Diabetes - Social History Alcohol Use: None Hx Substance Use: No Substance Use Type: Reports: None Hx Tobacco Use: No Smoking Status (MU): Current Every Day Smoker Type: eCigarettes Have You Smoked in the Last Year: No Review of Systems Constitutional: Negative Positive: Other - left ankle pain All Other Systems Reviewed And Are Negative: Yes Physical Exam Triage Information Reviewed: Yes Vital Signs On Initial Exam: Initial Vitals Temp Pulse Resp BP Pulse Ox 99.0 F 85 18 132/69 99 01/17/19 18:33 01/17/19 18:33 01/17/19 18:33 01/17/19 18:33 01/17/19 18:33 Vital Signs Reviewed: Yes Appearance: Positive: Well-Appearing, No Pain Distress Skin: Positive: Warm, Skin Color Reflects Adequate Perfusion Head/Face: Positive: Normal Head/Face Inspection Eyes: Positive: EOMI ENT: Positive: Normal ENT inspection Neck: Positive: Nontender Respiratory/Lung Sounds: Positive: Clear to Auscultation, Breath Sounds Present Cardiovascular: Positive: RRR, Pulses are Symmetrical in both Upper and Lower Extremities Abdomen Description: Negative: Distended Musculoskeletal: Positive: Other - left ankle with tenderness over the lateral malleolus with associated soft tissue swelling. Neurological: Positive: Sensory/Motor Intact, Alert, Oriented to Person Place, Time, CN Intact II-III, Speech Normal Psychiatric: Positive: Normal - Alecia Coma Scale Best Eye Response: 4 - Spontaneous Best Motor Response: 6 - Obeys Commands Best Verbal Response: 5 - Oriented Coma Scale Total: 15 Diagnostics - Vital Signs Vital Signs Temp Pulse Resp BP Pulse Ox 01/17/19 18:33 99.0 F 85 18 132/69 99 - Laboratory Lab Results: Lab Results 01/17/19 Range/Units 19:03 POC Ur Test Negative (Negative) Lab Statement: Any lab studies that have been ordered have been reviewed, and results considered in the medical decision making process. - Radiology left ankle Radiology Interpretation Completed By: ED Physician - nad Lower Extremity Course/Dx - Course Course Of Treatment: 23 yr old female with left ankle pain. final xray read pending. DC home. splint crutches, fu with ortho - Diagnoses Provider Diagnoses: Left ankle sprain Discharge - Sign-Out/Discharge Documenting (check all that apply): Patient Departure All imaging exams completed and their final reports reviewed: No - Discharge Plan Condition: Good Disposition: HOME Prescriptions: Ibuprofen TAB* [Motrin TAB* 600 MG] 600 mg PO Q6H PRN #20 tab PRN Reason: Pain Patient Education Materials: Ankle Sprain (DC) Referrals: Emeka Conti NP [Primary Care Provider] - 2 Days - Billing Disposition and Condition Condition: GOOD Disposition: Home
--- NOTE | 2019-01-18 10:24 | UC ---
- Progress Note Progress Note: xray report left ankle : IMPRESSION: IMPRESSION: NO ACUTE OSSEOUS INJURY. IF SYMPTOMS PERSIST, RECOMMEND REPEAT IMAGING. Course/Dx - Diagnoses Provider Diagnoses: Left ankle sprain Discharge - Sign-Out/Discharge Documenting (check all that apply): Patient Departure All imaging exams completed and their final reports reviewed: Yes - Discharge Plan Condition: Good Disposition: HOME Prescriptions: Ibuprofen TAB* [Motrin TAB* 600 MG] 600 mg PO Q6H PRN #20 tab PRN Reason: Pain Patient Education Materials: Ankle Sprain (DC) Forms: *Work Release Referrals: Emeka Conti NP [Primary Care Provider] - 2 Days - Billing Disposition and Condition Condition: GOOD Disposition: Home
== END 2019-01-17 20:10 | disposition home or self-care (01) ==
LOC: UCCORT 18:16
DX: S93.492A Sprain of other ligament of left ankle, initial encounter (principal); F17.290 Nicotine dependence, other tobacco product, uncomplicated; X50.0XXA Overexertion from strenuous movement or load, initial encounter; Y93.39 Activity, other involving climbing, rappelling and jumping off; Y92.9 Unspecified place or not applicable
CPT/HCPCS: 84702; 99213; G0463

== ENCOUNTER 2019-05-19 14:01 | Emergency (ER) | payer OTHER ==
--- OUTSIDE RECORDS SUMMARY | 2019-05-19 14:24 | XMS REPORT | Continuity of Care Document ---
:1995 External Reference #:[id number] Author Name Beatriz Moore Care Team Providers Name Role Phone Tuyet Friedman MD Primary Care Physician Unavailable Payers Date Identification Numbers Payment Provider Subscriber Policy Number: [id number] [facility] Gavin Estrella PayID: [id number] [address] [place] [address] Onset: 2018 Policy Number: [id number] Charity Estrella Group Number: [id number] [address] [address] Group Name: [phone] [place] [address] [place]: [id number] Onset: 2019 Policy Number: [id number] # Nykelsey Estrella PayID: [id number] 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 Tobacco Use Start: Unknown Light tobacco smoker (10 or fewer cigarettes/day) Smoking Status Reviewed: 03/22/19 Light tobacco smoker (10 or fewer cigarettes/day) ETOH Use Denies alcohol use Recreational Drug Use Denies Drug Use Tobacco Use Start: Unknown Light tobacco smoker (10 or fewer cigarettes/day) Exercise Type/Frequency Exercises regularly Allergies, Adverse Reactions, Alerts Description No Known Drug Allergies Medications Active Medications SIG Qnty Indications Ordering Provider Date Omeprazole 1 by mouth once 30caps K21.9 Emeka Conti NP 03/22/[address] History Medications No Active Medications Unknown 01/19/2019 - 03/22/2019 Trazodone HCL 1-2 tablets at 60tabs G47.00 Emeka Conti NP 09/15/2018 - 50mg bedtime as 01/18/2019 Tablets needed. Baclofen take 1/2-1 tab 30tabs M54.5 Emeka Conti NP 09/15/2018 - 10mg Tablets every 8 hours as 01/18/2019 needed for muscle spasm Fluticasone 2 sprays each 16units R42 Emeka Conti NP 06/22/2018 - Propionate nostril qd. 01/18/2019 50mcg/Act Suspension Meclizine HCL take one tablet 20tabs R42 Emeka Conti NP 06/22/2018 - 25mg every 6 hours as 09/14/2018 Tablets needed for dizziness Paroxetine HCL 1 by mouth every 90tabs Emeka Conti NP 05/22/2018 - 20mg day 09/14/2018 Tablets Medrol as directed on 21units M54.5 Emeka Conti NP 05/22/2018 - 4mg TBPK package 05/27/2018 Methocarbamol take 1 tablet 30tabs M54.5 Emeka Conti NP 05/22/2018 - 750mg every six hours 09/15/2018 Tablets as needed Tramadol HCL 1-2 tablets every 20tabs M54.5 Emeka Conti NP 05/22/2018 - 50mg 12 hours as Unknown Tablets needed for pain. No Active Medications Unknown 03/16/2018 - 05/22/2018 Immunizations CPT Code Status Date Vaccine Reaction Lot # [id number] Given 09/15/2018 Influenza Virus Vaccine, No immediate reaction [id number] Quadrivalent, Split, Preservative Free Vital Signs Date Vital Result Comment 03/22/2019 9:04am Height 65 inches 5'5" Weight 228.25 lb Heart Rate 74 /min BP Systolic 127 mmHg BP Diastolic 83 mmHg Body Temperature 97.5 F O2 % BldC Oximetry 98 % BMI (Body Mass Index) 38.0 kg/m2 01/19/2019 2:30pm Height 65 inches 5'5" Weight 237.00 lb Heart Rate 88 /min BP Systolic 132 mmHg BP Diastolic 90 mmHg Respiratory Rate 12 /min Body Temperature 99.5 F Pain Level 6 BMI (Body Mass Index) 39.4 kg/m2 12/11/2018 8:50am Height 65 inches 5'5" Weight 230.00 lb Heart Rate 72 /min BP Systolic 120 mmHg BP Diastolic 80 mmHg BMI (Body Mass Index) 38.3 kg/m2 11/21/2018 2:01pm Height 65 inches 5'5" Weight 230.00 lb Heart Rate 80 /min BP Systolic Sitting 124 mmHg BP Diastolic Sitting 80 mmHg Body Temperature 97.3 F Pain Level 5 BMI (Body Mass Index) 38.3 kg/m2 09/15/2018 11:18am Height 65 inches 5'5" Weight 235.25 lb Heart Rate 84 /min BP Systolic 128 mmHg BP Diastolic 85 mmHg Body Temperature 98.0 F O2 % BldC Oximetry 98 % BMI (Body Mass Index) 39.1 kg/m2 06/22/2018 1:35pm Height 65 inches 5'5" Weight 228.00 lb Heart Rate 94 /min BP Systolic 132 mmHg BP Diastolic 76 mmHg O2 % BldC Oximetry 98 % BMI (Body Mass Index) 37.9 kg/m2 05/22/2018 9:26am Height 65 inches 5'5" Weight 222.00 lb Heart Rate 90 /min BP Systolic 128 mmHg BP Diastolic 84 mmHg Body Temperature 97.2 F O2 % BldC Oximetry 95 % BMI (Body Mass Index) 36.9 kg/m2 03/30/2018 8:55am Height 65 inches 5'5" Weight 223.00 lb Heart Rate 62 /min BP Systolic Sitting 110 mmHg BP Diastolic Sitting 64 mmHg Respiratory Rate 16 /min Pain Level 2 BMI (Body Mass Index) 37.1 kg/m2 03/16/2018 9:44am Height 65 inches 5'5" Weight 223.75 lb Heart Rate 70 /min BP Systolic 118 mmHg BP Diastolic 76 mmHg Respiratory Rate 16 /min Body Temperature 97.6 F Pain Level 8 BMI (Body Mass Index) 37.2 kg/m2 Results Test Date Facility Test Result H/L Range Note Laboratory test 01/17/2019 [facility] Poc Negative Negative [address] , [place] [address] Urine [phone] Laboratory test 11/21/2018 [facility] Poc Negative Negative [address] , [place] [address] Urine [phone] CBC Auto Diff 06/23/2018 [facility] White Blood 7.7 10^3/uL Normal 3.5-10.[address] [place] [address] [phone] Red Blood Count 4.54 10^6/uL Normal 4.00-5.40 Hemoglobin 13.7 g/dL Normal 12.0-16.0 Hematocrit 40 % Normal 35-47 Mean Corpuscular Volume 89 fL Normal 80-97 Mean Corpuscular Hemoglobin 30 pg Normal 27-31 Mean Corpuscular HGB Conc 34 g/dL Normal 31-36 Red Cell Distribution Width 13 % Normal 10.5-15 Platelet Count 380 10^3/uL Normal 150-450 Mean Platelet Volume 8.8 fL Normal 7.4-10.4 Abs Neutrophils 4.4 10^3/uL Normal 1.5-7.7 Abs Lymphocytes 2.8 10^3/uL Normal 1.0-4.8 Abs Monocytes 0.4 10^3/uL Normal 0-0.8 Abs Eosinophils 0 10^3/uL Normal 0-0.6 Abs Basophils 0 10^3/uL Normal 0-0.2 Abs Nucleated RBC 0 10^3/uL Granulocyte % 57.6 % Normal 38-83 Lymphocyte % 36.0 % Normal 25-47 Monocyte % 5.6 % Normal 0-7 Eosinophil % 0.4 % Normal 0-6 Basophil % 0.4 % Normal 0-2 Nucleated Red Blood Cells % 0.1 Comp Metabolic 06/23/2018 [facility] Sodium 139 mmol/L Normal 135-[address] [place] [address] [phone] Potassium 4.4 mmol/L Normal 3.5-5.0 Chloride 107 mmol/L Normal 101-111 Co2 Carbon Dioxide 24 mmol/L Normal 22-32 Anion Gap 8 mmol/L Normal 2-11 Glucose 78 mg/dL Normal 70-100 Blood Urea Nitrogen 9 mg/dL Normal 6-24 Creatinine 0.86 mg/dL Normal 0.51-0.95 BUN/Creatinine Ratio 10.5 Normal 8-20 Calcium 9.7 mg/dL Normal 8.6-10.3 Total Protein 7.3 g/dL Normal 6.4-8.9 Albumin 4.5 g/dL Normal 3.2-5.2 Globulin 2.8 g/dL Normal 2-4 Albumin/Globulin Ratio 1.6 Normal 1-3 Total Bilirubin 0.90 mg/dL Normal 0.2-1.0 Alkaline Phosphatase 101 U/L Normal 34-104 Alt 26 U/L Normal 7-52 Ast 20 U/L Normal 13-39 Egfr Non- 83.3 >60 Egfr 100.8 >60 3 Laboratory 06/23/2018 [facility] TSH (Thyroid 3.10 Normal 0.34 -5.60 test finding [address] Stim Horm) mcIU/mL [place], [place] [id number] [phone] Vitamin B12 1016 pg/mL High 180-914 4 HCG < 0.60 mIU/mL 5 1 Rod Hanger: [id number] Test Disclaimer: Positive bacteria, red blood cells, white blood cells, early , low specific gravity, and other factors may cause false positive or negative results. It is recommended to retest unexpected results within 24 to 72 hours with a serum test when applicable. If is still suspected, please repeat test after 48 to 72 hours. 2 Rod Hanger: [id number] Test Disclaimer: Positive bacteria, red blood cells, white blood cells, early , low specific gravity, and other factors may cause false positive or negative results. It is recommended to retest unexpected results within 24 to 72 hours with a serum test when applicable. If is still suspected, please repeat test after 48 to 72 hours. 3 Because ethnic data is not always readily available, this report includes an eGFR for both -Americans and non- Americans. The National Kidney Disease Education Program (NKDEP) does not endorse the use of the MDRD equation for patients that are not between the ages of 18 and 70, are , have extremes of body size, muscle mass, or nutritional status, or are non- or non-. According to the National Kidney Foundation, irrespective of diagnosis, the stage of the disease is based on the level of kidney function: Stage Description GFR(mL/min/1.73 m(2)) 1 Kidney damage with normal or decreased GFR 90 2 Kidney damage with mild decrease in GFR 60-89 3 Moderate decrease in GFR 30-59 4 Severe decrease in GFR 15-29 5 Kidney failure <15 (or dialysis) 4 Normal Range 180 to 914 Indeterminate Range 145 to 180 Deficient Range <145 5 <5.0 Negative 5.0 - 25.0 Indeterminate (Repeat testing recommended after 72 hours) >25.0 Positive Perimenopausal women can display HCG levels of up to 20 mIU/mL Encounters Type Date Location Provider Dx Diagnosis Office Visit 01/19/2019 Orthopedic Sukh Mendoza, S93.432A Sprain of 2:15p Services Of tibiofibular C.M.A. ligament of left ankle, init encntr Office Visit 12/11/2018 Sam Mendoza, S93.492D Sprain of other 8:45a Services Of ligament of left C.M.A. ankle, subsequent encounter Office Visit 11/21/2018 Sam eMndoza, S93.492A Sprain of other 2:00p Services Of ligament of left C.M.A. ankle, initial encounter S92.032A Displaced avulsion fx tuberosity of l calcaneus, init Office Visit 09/15/2018 11:00a [facility] Emeka Conti NP Z00.00 [facility]/o abnormal findings G47.00 Insomnia, unspecified Z23 Encounter for immunization M54.5 Low back pain Office Visit 06/22/2018 1:40p [facility] Emeka Conti NP R42 [facility] R20.2 Paresthesia of skin Office Visit 05/22/2018 [facility] Emeka Conti NP M54.5 Low back pain 9:20a Medicine - [facility] Office Visit 03/30/2018 Orthopedic Keri S63.601A Unspecified 9:45a Services Of Gris Wagner M.D. sprain of right thumb, initial encounter Office Visit 03/16/2018 Sam Saavedra S63.601A Unspecified 9:15a Services Of Gris Wagner M.D. sprain of right thumb, initial encounter Office Visit 07/17/2017 [facility] R65.10 Sirs of 8:37a Assoc,trav Rivera non-infectious Hospitalists r, [place] origin w/o acute organ dysfunction Z87.820 Personal history of traumatic brain injury Z87.42 Personal history of oth diseases of the female genital tract Z86.79 Personal history of other diseases of the circulatory system [facility] Sirs of Visit 8:36a trav Wilkinson II, M.D. non-infectious Hospitalists origin w/o acute organ dysfunction Z87.820 Personal history of traumatic brain injury Z86.79 Personal history of other diseases of the circulatory system Z87.42 Personal history of oth diseases of the female genital tract Plan of Treatment 03/22/2019 - Emeka Conti, NPR51 GqontacsW08.83 Other foocogyM48.9 Gastro- esophageal reflux disease without esophagitisNew Medication:Omeprazole 20 mg - 1 by mouth once dailyComments:Lifestyle modification is important in acid reflux. Continue to avoid eating within 3-4 hours of bed, elevate the head of you bed, try to limit caffeine and alcohol, and any foods identified as triggers. Please let me know if symptoms do not improve or worsen.R10.813 Right lower quadrant abdominal tenderness
[2019-05-19 14:44] VITALS: BP 126/72
--- NOTE | 2019-05-19 16:18 | UC ---
Throat Pain/Nasal Ean HPI - HPI Summary HPI Summary: C/O congestion, sore throat and cough that started yesterday and worsened today. Had to leave work. no h/o asthma. - History of Current Complaint Chief Complaint: UCGeneralIllness Stated Complaint: SORE THROAT NECK PAIN HEADACHE Hx Obtained From: Patient Hx Last Menstrual Period: 05/01/19 ?: No Onset/Duration: Sudden Onset, Lasting Days - 2, Worse Since - today Severity: Moderate Pain Intensity: 8 Cough: Nonproductive Associated Signs & Symptoms: Positive: Dysphagia, Wheezing, Hoarseness Related History: Smoking - e-cigarette - Allergies/Home Medications Allergies/Adverse Reactions: Allergies Allergy/AdvReac Type Severity Reaction Status Date / Time No Known Allergies Allergy Verified 05/19/19 14:45 Home Medications: Home Medications Levothyroxine TAB* [Synthroid 88 MCG TAB*] 88 mcg PO DAILY 05/19/19 [History Confirmed 05/19/19] PMH/Surg Hx/FS Hx/Imm Hx Endocrine History: Hypothyroidism - Surgical History Surgical History: Yes Surgery Procedure, Year, and Place: T & A, 2007 - Family History Known Family History: Positive: Unknown - STATES SHE IS UNSURE OF ANY OF HER FAMILY'S PMHx, Hypertension, Other - No cancer, father and siblings are alive and well with no illness Negative: Cardiac Disease, Diabetes - Social History Occupation: Employed Full-time Lives: With Family Alcohol Use: None Substance Use Type: None Smoking Status (MU): Current Every Day Smoker Type: eCigarettes Have You Smoked in the Last Year: No - Immunization History Most Recent Influenza Vaccination: unsure Most Recent Pneumonia Vaccination: never Vaccination Up to Date: Yes Review of Systems All Other Systems Reviewed And Are Negative: Yes Constitutional: Positive: Fatigue ENT: Positive: Sore Throat, Nasal Discharge Respiratory: Positive: Cough Is Patient Immunocompromised?: No Physical Exam Triage Information Reviewed: Yes Appearance: No Pain Distress, Ill-Appearing, Obese Vital Signs: Initial Vital Signs Temp 97.4 F 05/19/19 14:39 Pulse 62 05/19/19 14:39 Resp 16 05/19/19 14:39 BP 126/72 05/19/19 14:39 Pulse Ox 99 05/19/19 14:39 Vital Signs Reviewed: Yes Eyes: Positive: Conjunctiva Clear ENT: Positive: Pharyngeal erythema - with viral changes., Nasal congestion - with allergic changes., TMs normal Neck exam: Normal Respiratory: Positive: Lungs clear, Wheezing - expiratory wheeze with coughing. Cardiovascular Exam: Normal Musculoskeletal Exam: Normal Neurological Exam: Normal Psychological Exam: Normal Skin Exam: Normal Throat Pain/Nasal Course/Dx - Differential Dx/Diagnosis Differential Diagnosis/HQI/PQRI: Laryngitis, Otitis Media, Pharyngitis, Sinusitis, URI Provider Diagnosis: Upper respiratory infection with cough and congestion, Acute bronchospasm Discharge ED - Sign-Out/Discharge Documenting (check all that apply): Patient Departure All imaging exams completed and their final reports reviewed: No Studies - Discharge Plan Condition: Stable Disposition: HOME Prescriptions: Albuterol HFA INHALER* [Ventolin HFA Inhaler*] 2 puff INH Q4H PRN #1 mdi PRN Reason: Wheezing predniSONE TAB* [Deltasone 20 MG TAB*] 60 mg PO DAILY #18 tab Patient Education Materials: Upper Respiratory Infection (ED), Bronchospasm (ED ) Forms: *Work Release Referrals: Emeka Conti, MANAGER OF PURCHASING [Primary Care Provider] - Additional Instructions: QUIT SMOKING !!! - Billing Disposition and Condition Condition: STABLE Disposition: Home
== END 2019-05-19 16:34 | disposition home or self-care (01) ==
LOC: UCCORT 14:01
DX: J06.9 Acute upper respiratory infection, unspecified (principal); J98.01 Acute bronchospasm; F17.290 Nicotine dependence, other tobacco product, uncomplicated; E03.9 Hypothyroidism, unspecified
CPT/HCPCS: 99212; G0463

== ENCOUNTER 2023-05-18 11:52 | Inpatient (IN) ==
[2023-05-18 13:04] LABS: ABS Lymphocytes 1.9 10^3/uL (1.0-4.8); ABS Monocytes 0.7 10^3/uL (0.0-0.9); ABS Neutrophils 8.7 10^3/uL (1.5-7.6); ABS Nucleated RBC 0.01 10^3/ul; Eosinophil % 0.1 %; Hematocrit 32.5 % (35-45); Hemoglobin 11.4 g/dL (11.5-14.3); Lymphocyte % 17.1 %; Mean Corpuscular Hemoglobin 30.4 pg (27-33); Mean Corpuscular Hgb Conc 35.2 g/dL (31-36); Mean Corpuscular Volume 86.5 fL (80-97); Nucleated Red Blood Cells % 0.1 /100 WBC (0.0-0.4); Platelet Count 244 10^3/uL (150-450); Red Blood Count 3.76 10^6/uL (3.63-4.92); Red Cell Distribution Width 12.8 % (12-17); White Blood Count 11.4 10^3/uL (3.8-11.8)
[2023-05-18 13:50] LABS: Urine Creatinine Concentration 50.05 mg/dL (20.00-320.00)
[2023-05-18 13:53] LABS: Urine TP Creat Ratio 0.37 mg/mg
[2023-05-18 13:56] LABS: Albumin 3.4 g/dL (3.2-5.2); Albumin/Globulin Ratio 1.3 (1-3); Calcium 9.8 mg/dL (8.6-10.3); Creatinine, Serum 0.67 mg/dL (0.51-0.95); Globulin 2.7 g/dL (2-4); Potassium 3.5 mmol/L (3.5-5.0); Total Bilirubin 0.6 mg/dL (0.2-1.0); Total Protein 6.1 g/dL (6.4-8.9); Uric Acid 3.5 mg/dL (2.3-6.6); eGFR CKD-EPI 123.5 (>60)
[2023-05-18] MEDS ORDERED: Penicillin G Potassium IV 5,000,000 UNITS in NS 0.9% 100 ml BAG 100 ML IVPB ONE (14:34)
[2023-05-18] MEDS ORDERED: Buffered Lidocaine 1% SYRIN 1 ml INTRADERM ONE (14:34)
[2023-05-18] MEDS ORDERED: Lactated Ringers 1000 ml BAG 1,000 ML IV ONE (14:34)
[2023-05-18] MEDS ORDERED: Dinoprostone 10 MG VAG.SUPP VAGINAL ONE (14:34)
[2023-05-18] MEDS ORDERED: Lidocaine 1% VIAL 10 MG/ML 30 ML VIAL INJ PRN (14:34)
[2023-05-18 15:54] LABS: Urine Benzodiazepine Screen None Detected (None Detect); Urine Opiates Screen None Detected (None Detect)
[2023-05-19] MEDS ORDERED: Morphine 10 MG/ML VIAL (1 ml) IV ONE (01:14)
[2023-05-19] MEDS: Promethazine INJ(RESTRICTED) 25 MG/ML 1 ml VIAL IV PRN (01:39)
[2023-05-19] MEDS ORDERED: miSOPROStol 100 mcg TAB PO ONE ×2 (09:16→13:39)
[2023-05-19] MEDS ORDERED: Oxytocin in LR 20,000 MILLI.UNIT/1,000 ML BAG IV SCH (17:45)
[2023-05-19] MEDS: Lactated Ringers 1000 ml BAG 1,000 ML IV SCH (18:16)
[2023-05-20] MEDS: Penicillin G Potassium IV 3,000,000 UNITS in NS 0.9% 100 ml BAG 100 ML IVPB SCH ×4 (00:25→20:13)
[2023-05-20] MEDS: Promethazine INJ(RESTRICTED) 25 MG/ML 1 ml VIAL IV PRN (02:42)
[2023-05-20] MEDS: Lactated Ringers 1000 ml BAG 1,000 ML IV SCH (07:30)
[2023-05-20] MEDS ORDERED: Lactated Ringers 1000 ml BAG 1,000 ML IV SCH ×2 (08:00→14:00)
[2023-05-20] MEDS ORDERED: Oxytocin in LR 20,000 MILLI.UNIT/1,000 ML BAG IV SCH (11:40)
[2023-05-20] MEDS ORDERED: Lidocaine 1.5% EPI 1:200,000 30 ML SDV ONE (12:21)
[2023-05-20] MEDS ORDERED: OBEPIDURAL (200 ML) 200 ML EPIDURAL ONE (12:21)
[2023-05-20] MEDS ORDERED: Lactated Ringers 1000 ml BAG 1,000 ML IV ONE (13:34)
[2023-05-20] MEDS ORDERED: Phenylephrine 40 mcg/mL 10mL (400mcg) SYRINGE IV PUSH PRN ×2 (13:34)
[2023-05-20] MEDS ORDERED: Sodium Citrate/Citric Acid LIQ 15 ML UDC PO PRN (13:34)
[2023-05-20] MEDS ORDERED: OBEPIDURAL (200 ML) 200 ML EPIDURAL SCH (14:00)
[2023-05-20 14:59] LABS: Urine Appearance Clear; Urine Bilirubin Negative (Negative); Urine Blood 1+ (Negative); Urine Color Yellow; Urine Glucose Negative (Negative); Urine Ketones Negative (Negative); Urine Nitrite Negative (Negative); Urine Protein Negative (Negative); Urine Specific Gravity 1.008 (1.002-1.030); Urine Urobilinogen Negative (Negative)
[2023-05-20 15:07] LABS: Urine Bacteria Absent (Absent); Urine Red Blood Cell Trace(0-2/hpf) (Absent); Urine Squamous Epithelial Cell Present (Absent); Urine White Blood Cell Absent (Absent)
[2023-05-21] MEDS: Penicillin G Potassium IV 3,000,000 UNITS in NS 0.9% 100 ml BAG 100 ML IVPB SCH ×7 (00:55→20:07)
[2023-05-21] MEDS ORDERED: OBEPIDURAL (200 ML) 200 ML EPIDURAL ONE (03:21)
[2023-05-21] MEDS ORDERED: Calcium Carb (TUMS) 500 mg CHEW TAB PO ONE (03:28)
[2023-05-21] MEDS ORDERED: Oxytocin in LR 20,000 MILLI.UNIT/1,000 ML BAG IV SCH ×2 (03:30→15:20)
[2023-05-21] MEDS ORDERED: Buffered Lidocaine 1% SYRIN 1 ml ONE (10:00)
[2023-05-21 11:52] LABS: ABS Lymphocytes 1.3 10^3/uL (1.0-4.8); ABS Monocytes 0.7 10^3/uL (0.0-0.9); ABS Neutrophils 11.6 10^3/uL (1.5-7.6); ABS Nucleated RBC 0.01 10^3/ul; Hematocrit 27.6 % (35-45); Hemoglobin 9.7 g/dL (11.5-14.3); Lymphocyte % 9.9 %; Mean Corpuscular Hemoglobin 30.7 pg (27-33); Mean Corpuscular Hgb Conc 35.2 g/dL (31-36); Mean Corpuscular Volume 87.3 fL (80-97); Mean Platelet Volume 8.9 fL (7.5-11.2); Platelet Count 175 10^3/uL (150-450); Red Blood Count 3.16 10^6/uL (3.63-4.92); White Blood Count 13.7 10^3/uL (3.8-11.8)
[2023-05-21 12:11] LABS: Albumin 2.2 g/dL (3.2-5.2); Albumin/Globulin Ratio 1.1 (1-3); Calcium 7.7 mg/dL (8.6-10.3); Creatinine, Serum 0.39 mg/dL (0.51-0.95); Potassium 3.4 mmol/L (3.5-5.0); Total Bilirubin 1.2 mg/dL (0.2-1.0); Total Protein 4.2 g/dL (6.4-8.9); eGFR CKD-EPI 140.8 (>60)
[2023-05-21] MEDS ORDERED: ceFOXitin 2 GM IVPREMIX 2 GM/50 ML BAG IVPB ONE (13:17)
[2023-05-21] MEDS ORDERED: Oxytocin 10 UNITS/ML 1 ML VIAL ONE (13:57)
[2023-05-21] MEDS ORDERED: Ondansetron 4 mg VIAL 2 MG/ML 2 ml VIAL ONE (13:57)
[2023-05-21] MEDS ORDERED: Lidocaine 2% PF 10 ML AMP (OR) ONE ×2 (13:58→14:27)
[2023-05-21] MEDS ORDERED: Morphine PF AMP (0.5MG/ML) 5 MG/10 ML AMP ONE (13:58)
[2023-05-21] MEDS ORDERED: Phenylephrine 40 mcg/mL 10mL (400mcg) SYRINGE ONE (13:58)
[2023-05-21] MEDS ORDERED: Naloxone 0.4 mg VIAL 0.4 mg/ml 1 ml VIAL IV PUSH PRN (14:09)
[2023-05-21] MEDS ORDERED: Acetaminophen IV 1 GM/100ML 1,000 MG/100 ML BAG IV PRN (14:09)
[2023-05-21] MEDS ORDERED: Metoclopramide 5 MG/ML VIAL (10 mg) IV PRN (14:09)
[2023-05-21] MEDS ORDERED: Ondansetron 4 mg VIAL 2 MG/ML 2 ml VIAL IV PRN (14:09)
[2023-05-21] MEDS ORDERED: fentaNYL 100 mcg/2 ml 50 MCG/ML VIAL ONE (14:45)
[2023-05-21] MEDS ORDERED: Dibucaine 1% OINT 28.35 GM TUBE PR PRN (15:20)
[2023-05-21] MEDS ORDERED: Glycerin ADULT 2.4 gm SUPP PR PRN (15:20)
[2023-05-21] MEDS ORDERED: Witch Hazel PAD JAR TOPICAL PRN (15:20)
[2023-05-21] MEDS ORDERED: Lactated Ringers 1000 ml BAG 1,000 ML IV SCH (16:00)
[2023-05-22 07:27] LABS: ABS Lymphocytes 1.5 10^3/uL (1.0-4.8); ABS Monocytes 0.7 10^3/uL (0.0-0.9); ABS Neutrophils 8.8 10^3/uL (1.5-7.6); ABS Nucleated RBC 0.01 10^3/ul; Eosinophil % 0.2 %; Hematocrit 27.6 % (35-45); Hemoglobin 9.7 g/dL (11.5-14.3); Lymphocyte % 13.9 %; Mean Corpuscular Hemoglobin 30.4 pg (27-33); Mean Corpuscular Hgb Conc 35.1 g/dL (31-36); Mean Corpuscular Volume 86.6 fL (80-97); Nucleated Red Blood Cells % 0.1 /100 WBC (0.0-0.4); Platelet Count 202 10^3/uL (150-450); Red Blood Count 3.19 10^6/uL (3.63-4.92); Red Cell Distribution Width 12.9 % (12-17); White Blood Count 11.1 10^3/uL (3.8-11.8)
[2023-05-22] MEDS ORDERED: Influenza vaccine *QUAD* *2023-24* 0.5 ML SYRINGE IM ONE (09:00)
[2023-05-24 07:38] VITALS: BP 144/85
[2023-05-24] MEDS ORDERED: Varicella Virus Vaccine Live 0.5 ML VIAL SUBCUT ONE (09:39)
== END 2023-05-24 11:31 | disposition home or self-care (01) | DRG 540 ==
LOC: MCHOBOUT 11:52 → MCHOB 14:06
PROVIDERS: ADMIT Registered Nurse; ATTEND Registered Nurse

== ENCOUNTER 2024-07-30 05:13 | Inpatient (IN) ==
[2024-07-30] MEDS ORDERED: Buffered Lidocaine 1% SYRIN 1 ml INTRADERM ONE (05:18)
[2024-07-30] MEDS: Lactated Ringers 1000 ml BAG 1,000 ML IV ONE (05:53)
[2024-07-30] MEDS ORDERED: Lactated Ringers 1000 ml BAG 1,000 ML IV SCH ×2 (06:00→10:00)
[2024-07-30 06:10] LABS: ABS Lymphocytes 2.1 10^3/uL (1.0-4.8); ABS Monocytes 0.6 10^3/uL (0.0-0.9); Eosinophil % 0.3 %; Hematocrit 30.9 % (35-45); Hemoglobin 10.6 g/dL (11.5-14.3); Lymphocyte % 24.3 %; Mean Corpuscular Hemoglobin 29.8 pg (27-33); Mean Corpuscular Hgb Conc 34.5 g/dL (31-36); Mean Corpuscular Volume 86.4 fL (80-97); Platelet Count 209 10^3/uL (150-450); Red Blood Count 3.57 10^6/uL (3.63-4.92); Red Cell Distribution Width 13.5 % (12-17); White Blood Count 8.8 10^3/uL (3.8-11.8)
[2024-07-30] MEDS ORDERED: Dexamethasone IV 4 MG/ML VIAL 1 ml VIAL ONE (06:56)
[2024-07-30] MEDS ORDERED: Ondansetron 4 mg VIAL 2 MG/ML 2 ml VIAL ONE (06:56)
[2024-07-30] MEDS ORDERED: Oxytocin 10 UNITS/ML 1 ML VIAL ONE (06:57)
[2024-07-30] MEDS ORDERED: Morphine PF AMP (0.5MG/ML) 5 MG/10 ML AMP ONE (06:59)
[2024-07-30] MEDS ORDERED: Metoclopramide 5 MG/ML VIAL (10 mg) ONE (07:41)
[2024-07-30] MEDS: Sodium Citrate/Citric Acid LIQ 15 ML UDC PO ONE (07:57)
[2024-07-30] MEDS: ceFAZolin 2 GM PREMIX 2 GM/50 ML BAG IV ONE (07:57)
[2024-07-30] MEDS ORDERED: Acetaminophen IV 1 GM/100ML 1,000 MG/100 ML BAG IV ONE (08:24)
[2024-07-30] MEDS ORDERED: Ondansetron 4 mg VIAL 2 MG/ML 2 ml VIAL IV PRN (08:41)
[2024-07-30] MEDS ORDERED: Metoclopramide 5 MG/ML VIAL (10 mg) IV PRN (08:41)
[2024-07-30] MEDS ORDERED: Acetaminophen IV 1 GM/100ML 1,000 MG/100 ML BAG IV PRN (08:41)
[2024-07-30] MEDS ORDERED: Naloxone 0.4 mg VIAL 0.4 mg/ml 1 ml VIAL IV PUSH PRN (08:41)
[2024-07-30 09:17] LABS: Urine Appearance Clear; Urine Bilirubin Negative (Negative); Urine Blood Negative (Negative); Urine Color Light-Yellow; Urine Glucose Negative (Negative); Urine Ketones Negative (Negative); Urine Nitrite Negative (Negative); Urine Protein Negative (Negative); Urine Specific Gravity 1.007 (1.002-1.030); Urine Urobilinogen Negative (Negative); Urine pH 7.5 (5.0-8.0)
[2024-07-30] MEDS ORDERED: Phenylephrine IV 10 MG/ML 1 ml VIAL ONE (09:27)
[2024-07-30 09:40] LABS: Urine Benzodiazepine Screen None Detected (None Detect); Urine Cannabinoids Screen None Detected (None Detect); Urine Opiates Screen None Detected (None Detect)
[2024-07-30] MEDS ORDERED: Oxytocin in LR 20,000 MILLI.UNIT/1,000 ML BAG IV ONE (09:44)
[2024-07-30] MEDS ORDERED: Witch Hazel PAD JAR TOPICAL PRN (09:46)
[2024-07-30] MEDS ORDERED: Dibucaine 1% OINT 28.35 GM TUBE PR PRN (09:46)
[2024-07-30] MEDS ORDERED: Glycerin ADULT 2.4 gm SUPP PR PRN (09:46)
[2024-07-30] MEDS: Oxytocin in LR 20,000 MILLI.UNIT/1,000 ML BAG IV SCH (10:01)
[2024-07-30] MEDS: Calcium Carb (TUMS) 500 mg CHEW TAB PO SCH (16:12)
[2024-07-31 06:21] LABS: ABS Monocytes 0.8 10^3/uL (0.0-0.9); ABS Neutrophils 8.4 10^3/uL (1.5-7.6); Eosinophil % 0.1 %; Hematocrit 26.8 % (35-45); Hemoglobin 9.1 g/dL (11.5-14.3); Lymphocyte % 24.9 %; Mean Corpuscular Hemoglobin 29.7 pg (27-33); Mean Corpuscular Volume 87.2 fL (80-97); Mean Platelet Volume 8.7 fL (7.5-11.2); Platelet Count 193 10^3/uL (150-450); Red Blood Count 3.07 10^6/uL (3.63-4.92); Red Cell Distribution Width 13.2 % (12-17); White Blood Count 12.2 10^3/uL (3.8-11.8)
[2024-08-01 09:15] VITALS: BP 126/81
[2024-08-01 21:22] LABS: Syphilis IgG Screen Nonreactive
== END 2024-08-01 12:25 | disposition home or self-care (01) | DRG 540 ==
LOC: MCHOB 05:13
PROVIDERS: ADMIT Obstetrics & Gynecology; ATTEND Obstetrics & Gynecology